=== PATIENT | female | born 1975 | race Caucasian/White ===

== ENCOUNTER 2018-07-04 11:51 | Emergency (ER) | payer OTHER ==
[2018-07-04] MEDS ORDERED: NS 1,000 ML IV ONE (14:24)
[2018-07-04] MEDS ORDERED: METOCLOPRAMIDE 10 MG/2 ML VIAL IVP ONE (14:24)
[2018-07-04] MEDS ORDERED: DEXAMETHASONE 10 MG/ML VIAL IVP ONE (14:24)
[2018-07-04] MEDS ORDERED: DEXAMETHASONE 4 MG/ML VIAL ONE (14:34)
--- NOTE | 2018-07-04 14:56 | EDPHY ---
H & P Stated Complaint: Stood up c nausea, syncope, unk down time, pain bilat zygomatics s deform Time Seen by Provider: 07/04/18 13:28 HPI/ROS: CHIEF COMPLAINT: Headache HISTORY OF PRESENT ILLNESS: 42-year-old female presents with headache and syncope. She was at work, went out to smoke and developed a a right frontal headache. The headache was moderate, 7/10. Associated with photophobia and nausea. She stood up and became dizzy, she then had a syncopal episode. Vomited after the syncopal episode. She continues to have a moderate headache. No prior similar headaches, but this is not the worst headache ever. History of migraine headaches, but not recently. She has a history of concussion 4 months ago and yesterday received dry needling in the posterior scalp and cervical area. No recent URI symptoms or fever. REVIEW OF SYSTEMS: complete 10 point ROS reviewed and is negative except for the noted elements in the HPI - Personal History Current Tetanus/Diphtheria Vaccine: Unsure - Medical/Surgical History Hx Asthma: No Hx Chronic Respiratory Disease: No Hx Diabetes: No Hx Cardiac Disease: No Hx Renal Disease: No Hx Cirrhosis: No Hx Alcoholism: No Hx HIV/AIDS: No Hx Splenectomy or Spleen Trauma: No Other PMH: foot surg, tubal ligation, - Social History Smoking Status: Current every day smoker Alcohol Use: Sober Drug Use: None - Physical Exam Exam: General Appearance: Alert, pleasant and talkative Head: no swelling or tenderness Eyes: Pupils equal and round, no conjunctival pallor or injection ENT, Mouth: Mucous membranes moist, no facial moisés tenderness Neck: Normal inspection, no midline tenderness, ROM without pain Respiratory: Lungs are clear to auscultation Cardiovascular: Regular rate and rhythm Gastrointestinal: Abdomen is soft and nontender Neurological: Alert, oriented x3, cranial nerves II through XII intact, motor 5 /5, sensory intact to light touch, normal gait Skin: Warm and dry Extremities: Normal inspection Psychiatric: Mood and affect normal Constitutional: Initial Vital Signs Temperature (C) 36.7 C 07/04/18 11:58 Heart Rate 68 07/04/18 11:58 Respiratory Rate 18 07/04/18 11:58 Blood Pressure 150/82 H 07/04/18 11:58 O2 Sat (%) 98 07/04/18 11:58 O2 Delivery Mode Room Air Allergies/Adverse Reactions: No Known Allergies Allergy (Verified 07/04/18 11:58) Home Medications: Medication Instructions Recorded Cyclobenzaprine [Flexeril 10 MG 10 mg PO TID PRN #15 tab 02/17/18 (*)] Ondansetron Odt [Zofran Odt 4 mg 4 mg PO Q4 PRN #12 tab 02/17/18 (*)] Zoloft 100mg (*) 02/17/18 Medical Decision Making - Diagnostics Imaging Results: CT brain: NAD Imaging: Discussed imaging studies w/ manager call Radiologist ED Course/Re-evaluation: This patient presents with a headache and syncope. The headache is not the worst ever and has been moderate. I have considered subarachnoid hemorrhage/ aneurysm, but clinically I do not suspect this is the reason for the patient's headache. More likely this is a migraine headache. Reglan, Benadryl and Decadron IV given. A CT scan of the brain was ordered. 3:00 p.m.-feels better after IV medications. CT results pending. On d/c, CT results d/w pt. Feeling much better, YEN almost completely resolved. Likely migraine YEN. Warning signs discussed. Differential Diagnosis: Headache including but not limited to subarachnoid hemorrhage, migraine headache , tension headache and infectious causes such as meningitis, pharyngitis and sinusitis. - Data Points Laboratory Results: Laboratory Results 07/04/18 12:00 07/04/18 12:00 Medications Given: Discontinued Medications Dexamethasone (Decadron Injection) 10 mg IVP EDNOW ONE Stop: 07/04/18 14:25 Last Admin: 07/04/18 14:38 Dose: 10 mg Diphenhydramine HCl (Benadryl Injection) 25 mg IVP EDNOW ONE Stop: 07/04/18 14:25 Last Admin: 07/04/18 14:38 Dose: 25 mg Sodium Chloride (Ns) 1,000 mls @ 0 mls/hr IV ONCE ONE; Wide Open PRN Reason: Protocol Stop: 07/04/18 14:25 Last Admin: 07/04/18 14:38 Dose: 1,000 mls Metoclopramide HCl (Reglan Injection) 10 mg IVP EDNOW ONE Stop: 07/04/18 14:25 Last Admin: 07/04/18 14:38 Dose: 10 mg Departure - Departure Disposition: Home, Routine, Self-Care Clinical Impression: Migraine headache Qualifiers: Migraine type: without aura Status migrainosus presence: without status migrainosus Intractability: not intractable Qualified Code(s): G43.009 - Migraine without aura, not intractable, without status migrainosus Condition: Fair Instructions: Migraine Headache (ED) Additional Instructions: We gave you Reglan, Benadryl and Decadron in the ED. You have a 2.5cm cyst/polyp in the left maxillary sinus on CT scan Return for worsening symptoms or any concerns. Referrals: Tony Gonzalez DO [Doctor of Osteopathy] - As per Instructions
[2018-07-04 14:59] LABS: PLATELET COUNT 234 10^3/uL (150-400)
--- NOTE | 2018-07-04 15:03 | CPEKG ---
Test Reason : OPEN Blood Pressure : / mmHG Vent. Rate : 062 BPM Atrial Rate : 062 BPM P-R Int : 153 ms QRS Dur : 090 ms QT Int : 403 ms P-R-T Axes : -06 015 019 degrees QTc Int : 410 ms Sinus rhythm Confirmed by Luz Elena Gomez ([id number]) on 07/04/2018 3:02:37 PM Referred By: Confirmed By:Luz Elena Gomez
[2018-07-04 16:17] VITALS: BP 122/67
== END 2018-07-04 16:20 | disposition home or self-care (01) ==
LOC: EDUNIT#
DX: G43.009 Migraine without aura, not intractable, without status migrainosus (principal); E86.9 Volume depletion, unspecified; J34.1 Cyst and mucocele of nose and nasal sinus; F17.200 Nicotine dependence, unspecified, uncomplicated
CPT/HCPCS: 96374; J1100; J1200; J2765